=== PATIENT | male | born 1970 | race Caucasian/White ===

== ENCOUNTER 2017-11-27 05:03 | Inpatient (IN) | payer BC ==
[~2017-11-27] VITALS: Ht 177.8 cm; Wt 98.4 kg
[2017-11-27] MEDS ORDERED: CEFAZOLIN SODIUM/DEXTROSE,ISO 50 ML IV ONE (06:47)
[2017-11-27] MEDS ORDERED: ACETAMINOPHEN 325 MG TABLET ONE (06:47)
[2017-11-27] MEDS ORDERED: CELECOXIB 100 MG CAPSULE ONE ×2 (06:47→06:50)
[2017-11-27] MEDS ORDERED: oxyCODONE HCL SR 10MG TAB.SR.12H PO ONE (06:47)
[2017-11-27] MEDS ORDERED: MORPHINE SULFATE/PF 10 MG/10ML (1MG/ML) AMPUL ONE (07:27)
[2017-11-27] MEDS ORDERED: TRANEXAMIC ACID 3,000 MG in SODIUM CHLORIDE IRRIG SOLUTION 70 ML IR ONE (08:00)
[2017-11-27] MEDS ORDERED: KETOROLAC TROMETHAMINE INJ 30 MG/ML VIAL ONE (08:09)
[2017-11-27] MEDS ORDERED: BUPIVACAINE 0.5 % PF 150 MG/30 ML VIAL ONE (08:09)
[2017-11-27] MEDS ORDERED: BACITRACIN 50000 UNITS/VIAL ONE (08:10)
[2017-11-27] MEDS ORDERED: FENTANYL PF 250MCG/5ML AMPUL ONE (08:20)
--- NOTE | 2017-11-27 09:20 | NUR ---
MS/RN OPENING NOTE PATIENT RECEIVED FROM O.R. IN STABLE CONDITION ACCOMPANIED BY RN'S VIA BED. A/O X 3. S/P RIGHT UPPER HIP ARTHROPLASTY. NO SIGNS OF ACUTE DISTRESS. COMPLAIN OF RIGHT HIP PAIN RATED 8/10. SKIN NOTED INTACT, ONLY RIGHT HIP S/P SURGICAL INCISION. ALL NEEDS ATTENDED TO. CALL LIGHT WITHIN REACH. DR BOYCE PAGED FOR ADMISSION ORDERS. WILL CONTINUE TO MONITOR TO ENSURE SAFETY.
--- NOTE | 2017-11-27 09:22 | NUR ---
MS/RN DRESSING CHANGE PER RN FROM O.R. DRESSING CHANGE ON SATURDAY BY NURSE.
[2017-11-27] MEDS ORDERED: MEPERIDINE HCL/PF 50 MG/ML DISP.SYRIN ONE (09:46)
[2017-11-27] MEDS ORDERED: FENTANYL PF 100MCG/2ML AMPUL ONE (09:52)
[2017-11-27 10:51] VITALS: BP 147/84
[2017-11-27] MEDS ORDERED: CYCL5TAB PO (11:08)
[2017-11-27] MEDS ORDERED: HYDR-552 PO (11:08)
[2017-11-27] MEDS ORDERED: ZOFRAN 4mg/2ML IV PRN (11:30)
[2017-11-27] MEDS ORDERED: SENOKOT 8.6 MG TABLET PO PRN (11:30)
[2017-11-27] MEDS ORDERED: COLACE 250 MG CAPSULE PO PRN (11:30)
[2017-11-27] MEDS ORDERED: TYLENOL 650 MG TABLET PO PRN (11:30)
[2017-11-27] MEDS ORDERED: DULCOLAX 10 MG/SUPP.RECT RC PRN (11:30)
[2017-11-27] MEDS ORDERED: AMBIEN 5 MG TABLET PO PRN (11:30)
[2017-11-27] MEDS ORDERED: HYDROCODONE/APAP 5/325MG 1 EACH TABLET PO PRN (11:30)
[2017-11-27] MEDS: MORPHINE SULFATE INJ 4 MG/ML DISP.SYRIN IV PRN ×2 (11:50→14:29)
[2017-11-27] MEDS: IV LR 1000 ML 1,000 ML IV PRN (11:50)
[2017-11-27] MEDS ORDERED: ONDANSETRON HCL/PF 4 MG/2 ML VIAL IVP PRN (13:00)
[2017-11-27] MEDS ORDERED: MAG HYDROX/AL HYDROX/SIMETH 30 ML UDC PO PRN ×2 (13:00→17:00)
[2017-11-27] MEDS ORDERED: MAGNESIUM HYDROXIDE 30 ML UDC PO PRN (13:00)
[2017-11-27] MEDS ORDERED: ACETAMINOPHEN 325 MG TABLET PO PRN (13:00)
[2017-11-27] MEDS ORDERED: ZOLPIDEM TARTRATE 5 MG TABLET PO PRN (13:00)
[2017-11-27] MEDS ORDERED: Z GUARD REMEDY 2 OZ OINT TP PRN (13:00)
[2017-11-27 16:00] VITALS: BP 138/85
[2017-11-27] MEDS: ANCEF 1 G in IV D5W 50 ML IV SCH (16:32)
[2017-11-27] MEDS: RIVAROXABAN 10 MG TABLET PO SCH (16:32)
[2017-11-27] MEDS ORDERED: HYDROMORPHONE 1 MG/1 ML DISP.SYRIN IV ONE (16:35)
[2017-11-27] MEDS ORDERED: oxyCODONE IR immediate release 5 MG PO PRN ×2 (17:00)
[2017-11-27] MEDS ORDERED: oxyCODONE HCL SR 20MG TAB.SR.12H PO SCH (17:00)
[2017-11-27] MEDS ORDERED: CLONIDINE HCL 0.1 MG TABLET PO PRN (17:00)
[2017-11-27] MEDS ORDERED: HYDROMORPHONE 1 MG/1 ML DISP.SYRIN IV PRN (17:00)
[2017-11-27] MEDS ORDERED: HYDROMORPHONE INJ 2 MG/ML DISP.SYRIN IV PRN (17:00)
[2017-11-27] MEDS ORDERED: diphenhydrAMINE HCL 25 MG CAPSULE PO PRN (17:00)
[2017-11-27] MEDS ORDERED: ONDANSETRON HCL/PF 4 MG/2 ML VIAL IV PRN (17:00)
[2017-11-27] MEDS: DOCUSATE SODIUM 100 MG CAPSULE PO SCH (17:07)
[2017-11-27] MEDS ORDERED: HYDROMORPHONE INJ 2 MG/ML DISP.SYRIN IV ONE (17:30)
--- NOTE | 2017-11-27 18:32 | NUR ---
MS/RN CLOSING NOTE PATIENT IN BED IN STABLE CONDITION. A/O X 4, NO SIGNS OF ACUTE DISTRESS. NO COMPLAIN OF PAIN OR DISCOMFORT. ALL NEEDS ATTENDED TO. CALL LIGHT WITHIN REACH. WILL ENDORSE TO NEXT SHIFT FOR CONTINUITY OF CARE.
[2017-11-27 20:00] VITALS: BP 134/84
[2017-11-27] MEDS: HYDROMORPHONE INJ 2 MG/ML DISP.SYRIN IV PRN (20:05)
[2017-11-27] MEDS ORDERED: oxyCODONE HCL SR 10MG TAB.SR.12H PO SCH (21:00)
[2017-11-27] MEDS: PANTOPRAZOLE 40 MG TABLET.DR PO SCH (21:08)
[2017-11-27] MEDS ORDERED: SENNOSIDES 8.6 MG TABLET PO SCH (22:00)
[2017-11-28] MEDS: ANCEF 1 G in IV D5W 50 ML IV SCH ×2
[2017-11-28] MEDS: HYDROMORPHONE INJ 2 MG/ML DISP.SYRIN IV PRN ×7 (00:45→21:30)
[2017-11-28] MEDS: IV LR 1000 ML 1,000 ML IV PRN (00:51)
[2017-11-28] MEDS ORDERED: PHENOL/SODIUM PHENOLATE 1 BOTTLE MM ONE (06:03)
[2017-11-28] MEDS ORDERED: oxyCODONE IR immediate release 5 MG PO PRN (06:30)
[2017-11-28] MEDS ORDERED: MENTHOL/CETYLPYRD (CEPACOL) 1 LOZ LOZENGE PO PRN (06:30)
[2017-11-28] MEDS ORDERED: PHENOL/SODIUM PHENOLATE 1 BOTTLE MM PRN (06:30)
--- NOTE | 2017-11-28 06:30 | NUR ---
MS RN NOTES AWAKE & RESPONSIVE. NOT IN ANY DISTRESS. NO SOB NOTED. DENIES ANY PAIN OR DISCOMFORT AT THIS TIME. WITH IVF INFUSING WELL. MONITORED ACCORDINGLY. CALL LIGHT WITHIN REACH. BED IN LOWEST POSITION. SR UP X 2 FOR SAFETY. WILL ENDORSE TO NEXT SHIFT.
[2017-11-28 06:31] LABS: BASOPHILS % (AUTO) 0.5 % (0.0-2.0); EOSINOPHILS % (AUTO) 0.3 % (0.0-6.0); HEMATOCRIT 37 % (39-51); LYMPHOCYTES # (AUTO) 1.5 /CMM (0.8-4.8); LYMPHOCYTES % (AUTO) 15.5 % (20.0-44.0); MEAN CORPUSCULAR HEMOGLOBIN 29 PG (26.0-33.0); MEAN CORPUSCULAR HGB CONC 35 g/dl (31.0-36.0); MEAN CORPUSCULAR VOLUME 84 fL (80-96); MONOCYTES # (AUTO) 0.9 /CMM (0.1-1.30); MONOCYTES % (AUTO) 9.8 % (2.0-12.0); NEUTROPHILS # (AUTO) 7.1 /CMM (1.8-8.9); NEUTROPHILS % (AUTO) 73.9 % (43.0-81.0); PLATELET COUNT (AUTO) 312 /CMM (150-450); RDW COEFFICIENT OF VARIATION 13.7 (11.5-15.0); RED BLOOD CELL COUNT(AUTO) 4.42 MIL/uL (4.5-6.0); WHITE BLOOD COUNT (AUTO) 9.6 K/uL (4.3-11.0)
[2017-11-28 06:38] LABS: CALCIUM, SERUM 8.3 mg/dL (8.5-10.1); CREATININE 1.1 mg/dL (0.6-1.3); MAGNESIUM 1.7 mg/dL (1.8-2.4); PHOSPHORUS 3.2 mg/dL (2.5-4.9); POTASSIUM 4.4 mmol/L (3.5-5.1)
[2017-11-28] MEDS ORDERED: PANTOPRAZOLE 40 MG TABLET.DR PO SCH (07:30)
--- NOTE | 2017-11-28 07:45 | NUR ---
M/S RN - AM Assessment Patient awake, A/O x 4, reports severe pain on right hip incision site, Dilaudid 1 mg IVP given as ordered. Skin is intact except for right hip surgical incision, POD#1 Right hip Arthroplasty. Right hip dressing c/d/i without drainage, discharge, surrounding erythema, or excess warmth. Skin on BLE is warm to touch, negative calf tenderness, negative for edema, sensation on both lower ext are intact. IVF LR at 100 ml/hr infusing well on the on the left hand wrist with no signs of infiltration. Fall precautions maintained. All needs anticipated and met. Will continue with current plan of care.
[2017-11-28 08:00] VITALS: BP 137/90
[2017-11-28] MEDS: DOCUSATE SODIUM 100 MG CAPSULE PO SCH ×2 (08:36→16:26)
[2017-11-28] MEDS: oxyCODONE HCL SR 10MG TAB.SR.12H PO SCH ×2 (08:36→20:56)
[2017-11-28] MEDS: Magnesium 1GM/D5W 100ML PREMIX 100 ML IV SCH ×2 (10:14→11:15)
[2017-11-28] MEDS: POLYETHYLENE GLYCOL 3350 17 GM POWD.PACK PO SCH ×2 (11:15→21:06)
[2017-11-28] MEDS: oxyCODONE IR immediate release 5 MG PO PRN (15:51)
[2017-11-28 16:00] VITALS: BP 133/78
[2017-11-28] MEDS: RIVAROXABAN 10 MG TABLET PO SCH (16:26)
--- NOTE | 2017-11-28 17:35 | NUR ---
M/S RN - Notes Patient in no acute distress, remain afebrile, right hip op site pain managed by Oxy IR and Dilaudid IVP as ordered. Magnesium level 1.7, replaced. Pt able to ambulate with PT twice. First dressing change tomorrow on right hip incision, leg abduction pillow in place. All needs attended and met. at bedside updated on plan of care. Will continue with current medical management.
[2017-11-28 20:00] VITALS: BP 126/75
[2017-11-28] MEDS: SENNOSIDES 8.6 MG TABLET PO SCH (21:06)
[2017-11-28] MEDS: PANTOPRAZOLE 40 MG TABLET.DR PO SCH (21:06)
[2017-11-29] MEDS ORDERED: MAGNESIUM HYDROXIDE 30 ML UDC PO ONE (05:30)
[2017-11-29] MEDS: oxyCODONE HCL SR 10MG TAB.SR.12H PO SCH ×3 (05:42→22:19)
--- NOTE | 2017-11-29 06:24 | NUR ---
MS RN NOTES AWAKE & RESPONSIVE. NOT IN ANY DISTRESS. NO SOB NOTED. DENIES ANY PAIN OR DISCOMFORT AT THIS TIME. WITH IV-HL PATENT & INTACT. MONITORED ACCORDINGLY. CALL LIGHT WITHIN REACH. BED IN LOWEST POSITION. SR UP X 2 FOR SAFETY. WILL ENDORSE TO NEXT SHIFT.
--- NOTE | 2017-11-29 07:35 | NUR ---
REPORT RECEIVED AT THE BEDSIDE. PATIENT IS SLEEPING. NO SOB OR DISTRESS NOTED AT THIS TIME. PATIENT DOES NOT APPEAR TO BE IN PAIN, NO FACIAL GRIMACE NOTED. BED IN A LOW POSITION, CALL LIGHT WITHIN PATIENT REACH. WILL CONTINUE TO MONITOR.
[2017-11-29 08:00] VITALS: BP 120/66
[2017-11-29] MEDS: DOCUSATE SODIUM 100 MG CAPSULE PO SCH ×2 (08:28→16:07)
[2017-11-29] MEDS: HYDROMORPHONE INJ 2 MG/ML DISP.SYRIN IV PRN ×4 (08:29→20:14)
--- NOTE | 2017-11-29 09:42 | NUR ---
DR BOYCE ON FLOOR. STATS TO GIVE PRN SENNA NOW AND A ONE TIME DOSE OF MIRALAX NOW. WILL CARRY OUT ORDER.
[2017-11-29] MEDS: oxyCODONE IR immediate release 5 MG PO PRN (09:51)
[2017-11-29] MEDS ORDERED: POLYETHYLENE GLYCOL 3350 17 GM POWD.PACK PO ONE (10:00)
[2017-11-29] MEDS: CYCLOBENZAPRINE 10 MG TABLET PO PRN (11:57)
--- NOTE | 2017-11-29 14:01 | NUR ---
TIME FOR SCHEDULED OXY. PT IS SLEEPING. WILL WAIT UNTIL HE WAKES UP TO GIVE THIS DOSE.
[2017-11-29 16:00] VITALS: BP 137/66
[2017-11-29] MEDS: RIVAROXABAN 10 MG TABLET PO SCH (16:07)
--- NOTE | 2017-11-29 18:51 | NUR ---
NO SIGNIFICANT CHANGES IN PATIENT CONDITION THROUGHOUT THE SHIFT. NO SOB OR DISTRESS NOTED AT THIS TIME. PATIENT IS SLEEPING AND DOES NOT APPEAR TO BE IN PAIN, NO FACIAL GRIMACE NOTED. BED IN LOW POSITION, CALL LIGHT WITHIN PATIENT REACH. WILL ENDORSE FOR JOAQUÍN.
--- NOTE | 2017-11-29 19:15 | NUR ---
MS RN NOTES RECEIVED PT IN BED, RESTING COMFORTABLY AT THIS TIME. AROUSES EASILY, A/O X 4. VERBALLY RESPONSIVE. NO DISTRESS, NOR SOB NOTED. RESPIRATION IS EVEN AND UNLABORED, USE OF INSENTIVE SPIROMETER ENCOURAGED. IV SITE ON LEFT WRIST INTACT AND PATENT, FLUSHED WITH NS, NO S/S OF INFILTRATION NOTED. NO C/O PAIN OR DISCOMFORT AT THIS TIME. RIGHT HIP SURGICAL INCISION WITH INTACT, CLEAN AND DRY DRESSING. NO BLEEDING NOTED. ALL NEEDS ATTENDED AND MET. KEPT COMFORTABLE. SAFETY PRECAUTIONS OBSERVED. CALL LIGHT WITHIN REACH. WILL CONTINUE TO MONITOR.
[2017-11-29 20:00] VITALS: BP 127/80
[2017-11-29] MEDS: PANTOPRAZOLE 40 MG TABLET.DR PO SCH (22:02)
[2017-11-29] MEDS: SENNOSIDES 8.6 MG TABLET PO SCH (22:02)
[2017-11-29] MEDS: POLYETHYLENE GLYCOL 3350 17 GM POWD.PACK PO SCH (22:03)
[2017-11-30] MEDS: oxyCODONE HCL SR 10MG TAB.SR.12H PO SCH ×2 (06:24→14:05)
--- NOTE | 2017-11-30 06:33 | NUR ---
MS RN NOTES PT IN BED, ASLEEP AT THIS TIME. AROUSES EASILY, A/O X 4. VERBALLY RESPONSIVE. NO DISTRESS, NOR SOB NOTED. NO SIGNIFICANT CHANGES NOTED . RESPIRATION IS EVEN AND UNLABORED, USE OF INCENTIVE SPIROMETER ENCOURAGED. IV SITE ON LEFT WRIST INTACT AND PATENT, FLUSHED WITH NS, NO S/S OF INFILTRATION NOTED. NO C/O PAIN OR DISCOMFORT AT THIS TIME. RIGHT HIP SURGICAL INCISION WITH INTACT, CLEAN AND DRY DRESSING. NO BLEEDING NOTED. ALL NEEDS ATTENDED AND MET. KEPT COMFORTABLE. SAFETY PRECAUTIONS OBSERVED. CALL LIGHT WITHIN REACH. WILL ENDORSE TO NEXT SHIFT FOR JOAQUÍN.
--- NOTE | 2017-11-30 07:40 | NUR ---
MS RN OPENING NOTE PATIENT IS ALERT AND ORIENTED X4. NO PAIN AT THIS TIME. NO SOB OR DISTRESS NOTED. CALL LIGHT WITHIN REACH. SAFETY MEASURES IMPLEMENTED. ABLE TO COMMUNICATE NEEDS. IV INTACT AND PATENT NO REDNESS OR SWELLING NOTED. RIGHT HIP INCISION FROM S/P RIGHT HIP ORIF. BRP WITH WALKER. LAB RESULTS PENDING. POSSIBLE DISCHARGE TO [facility]. WILL CONTINUE TO MONITOR THROUGHOUT SHIFT
[2017-11-30 08:00] VITALS: BP 120/71
[2017-11-30] MEDS: DOCUSATE SODIUM 100 MG CAPSULE PO SCH ×2 (08:00→16:10)
[2017-11-30 08:48] LABS: BASOPHILS % (AUTO) 0.3 % (0.0-2.0); EOSINOPHILS # (AUTO) 0.1 /CMM (0.0-0.7); EOSINOPHILS % (AUTO) 0.9 % (0.0-6.0); HEMATOCRIT 37 % (39-51); HEMOGLOBIN 12.8 g/dL (13.5-17.5); LYMPHOCYTES # (AUTO) 1.5 /CMM (0.8-4.8); LYMPHOCYTES % (AUTO) 15.4 % (20.0-44.0); MEAN CORPUSCULAR HEMOGLOBIN 29 PG (26.0-33.0); MEAN CORPUSCULAR HGB CONC 35 g/dl (31.0-36.0); MEAN CORPUSCULAR VOLUME 85 fL (80-96); MONOCYTES # (AUTO) 0.9 /CMM (0.1-1.30); MONOCYTES % (AUTO) 9.1 % (2.0-12.0); NEUTROPHILS # (AUTO) 7.2 /CMM (1.8-8.9); NEUTROPHILS % (AUTO) 74.3 % (43.0-81.0); PLATELET COUNT (AUTO) 344 /CMM (150-450); RDW COEFFICIENT OF VARIATION 13.7 (11.5-15.0); RED BLOOD CELL COUNT(AUTO) 4.36 MIL/uL (4.5-6.0); WHITE BLOOD COUNT (AUTO) 9.6 K/uL (4.3-11.0)
[2017-11-30 08:50] LABS: CALCIUM, SERUM 8.9 mg/dL (8.5-10.1); CREATININE 1.2 mg/dL (0.6-1.3); MAGNESIUM 2.1 mg/dL (1.8-2.4); PHOSPHORUS 3.2 mg/dL (2.5-4.9); POTASSIUM 4.4 mmol/L (3.5-5.1)
[2017-11-30] MEDS: HYDROMORPHONE INJ 2 MG/ML DISP.SYRIN IV PRN ×2 (09:26→18:53)
[2017-11-30] MEDS: CYCLOBENZAPRINE 10 MG TABLET PO PRN (10:08)
[2017-11-30] MEDS ORDERED: BISA10SU8 RC (13:53)
[2017-11-30] MEDS ORDERED: oxyCODONE HCL SR 10MG PO (13:53)
[2017-11-30] MEDS ORDERED: OXYC5CAP18 PO (13:54)
[2017-11-30] MEDS ORDERED: RIVA10TA PO (13:54)
[2017-11-30] MEDS ORDERED: SENN-167 PO (13:54)
[2017-11-30 16:00] VITALS: BP 138/94
[2017-11-30] MEDS: RIVAROXABAN 10 MG TABLET PO SCH (16:51)
--- NOTE | 2017-11-30 17:16 | NUR ---
MS RN NOTE CALLED [facility] TO GIVE REPORT TO RN. CHARGE NURSE UNAVAILABLE AT THIS TIME AND WILL RETURN CALL BACK.
--- NOTE | 2017-11-30 18:38 | NUR ---
MS RN CLOSING NOTE PATIENT RESTING COMFORTABLY AT THIS TIME. NO PAIN AT THIS TIME. NO SOB OR DISTRESS NOTED. CALL LIGHT WITHIN REACH AT ALL TIMES. SAFETY MEASURES IMPLEMENTED. ABLE TO COMMUNICATE NEEDS. IV INTACT AND PATENT NO REDNESS OR SWELLING NOTED. ALL DUE MEDICATIONS GIVEN ORDERED. ALL NURSING CARE NEEDS ATTENDED TO NEEDED. RIGHT HIP SX DRESSING INTACT AND DRY. PATIENT TO BE DISCHARGED LATER TONIGHT, GAVE REPORT TO [facility] TO TOYA GARCES. ALL DISCHARGE INSTRUCTIONS GIVEN TO PATIENT/PATIENT MOTHER/RN. ALL INSTRUCTIONS REPEATED BACK BY PATIENT/PATIENT'S MOTHER AND RN. ALL BELONGINGS ACCOUNTED FOR AND SIGNED. WILL ENDORSE TO CABLE SUPERVISOR NURSE FOR JOAQUÍN
--- NOTE | 2017-11-30 19:01 | NUR ---
MS RN NOTE PATIENT REQUESTING PAIN MEDICATION. PAIN LEVEL 7/10 ON RIGHT HIP. DILAUDID 1MG GIVEN. WILL REASSESS AND MONITOR PAIN
--- NOTE | 2017-11-30 19:33 | NUR ---
MS RN NOTE RECEIVED PATIENT FROM DAY SHIFT, PATIENT HAS DISCHARGE ORDER TO [facility], WAITING FOR THE AMBULANCE AT THIS TIME.
--- NOTE | 2017-11-30 19:50 | NUR ---
MS RN NOTE PATIENT WAS DISCHARGED WITH AMBULANCE WITHOUT INCIDENT. ID BAND AND HEP LOCK REMOVED. DC PACKET GIVEN. FAMILY ACCOMPANIED.
== END 2017-11-30 19:50 | DRG 470 ==
LOC: DS 05:03 → MEDSG2 10:12
PROVIDERS: ADMIT Specialist; ATTEND Specialist
PROC: 0SR90JZ Replacement of Right Hip Joint with Synthetic Substitute, Open Approach (ICD-10-PCS; principal; 2017-11-27 08:50)
DX: M16.11 Unilateral primary osteoarthritis, right hip (principal); E66.9 Obesity, unspecified; K59.00 Constipation, unspecified; Z68.31 Body mass index [BMI] 31.0-31.9, adult; G89.29 Other chronic pain
CPT/HCPCS: 36415; 80048-TC; 83735-TC; 84100-TC; 85025-TC; 86850-TC; 86921-TC; 87040-TC; 88305-TC; 88311-TC; 97110-TC; 97116-TC; 97530-TC; A4217; A6209; A6402; J0690; J1170; J1885; J2175; J2270; J2274; J2405; J2704; J3010; J3475; J3490; J7030; J7060; J7120; Z7610